=== PATIENT | male | born 1945 | race Caucasian/White ===

== ENCOUNTER → 2017-04-21 | Outpatient (CLI) | payer MEDICARE ==
--- NOTE | 2017-04-21 13:39 | XR ---
Left foot HISTORY: Left foot pain 3 views of the left foot No comparisons Bone mineralization, joint spaces and alignment are maintained. Sesamoids present at the volar aspect of the distal first metatarsal shows central lucency which could possibly be normal variant, difficu lt to exclude fracture however. No evident dislocation. Degenerative changes present at the first met atarsophalangeal joint. Minute ossific density present at the level of the dorsal aspect of the midd le phalanx of the fifth digit of the left foot, likely of no clinical significance. IMPRESSION: There could be underlying sesamoid fracture versus normal variant. Further evaluation of the sesamoids could be obtained with toe MRI.
== END | disposition home or self-care (01) ==
LOC: RADXRYALE 11:40
PROVIDERS: ATTEND Family Medicine
DX: M79.672 Pain in left foot (principal)